=== PATIENT | male | born 1965 | race Caucasian/White ===

== ENCOUNTER 2023-03-22 08:02 | Outpatient (RCR) | payer BC, SELFPAY ==
--- NOTE | 2023-03-22 07:45 | PTOPEVAL1 ---
Assessment and note entered by [employer] Evaluation Information Assessment Status Evaluation Diagnosis left shoulder pain, open subscap repair, biceps tenodesis Onset 03/16/23 Subjective Information Pt. reports he underwent left shoulder surgery on 03/16/23. He reports that he currently has no pain. he states that he has not done anything with the left arm and has been in a sling. He is right hand dominant. 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 He states that he is having no complication with sleep. 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 Reported Pain Level Pain Score 5: Self Report Assessment PT Clinical Summary Pt. is a 58 year old male who enters the clinic 6 days post left subscap repair and biceps tenodesis . He presents with impaired strength, impaired ROM, and pain. continued skilled PT is indicated in order to improve these areas to allow the pt. to achieve his goal of regaining normal left u.e. use. Plan of Care Interventions Electrical Stimulation,Hot Pack/Cold Pack,Manual Therapy,Neuro Re-education,Patient/Caregiver Educati,Therapeutic Activities,Therapeutic Exercise,Self-Care/Home Management PT Services Indicated Yes Treatment Frequency and 2x/week x 12 visits Duration These treatments will address the objective and functional deficits as defined above. The patient will be advanced safely and appropriately in order for the patient to progress towards his/her prior level of function. Additional exercises will be introduced and as well as a comprehensive home exercise program upon discharge, if needed, ?to ensure carryover of functional gains achieved in the clinic. This treatment plan has been reviewed and agreement upon by the patient.
--- NOTE | 2023-04-23 07:53 | PTOPPROG ---
Assessment and note entered by [employer], PT Evaluation Information Assessment Status Progress Diagnosis left shoulder pain, open subscap repair, biceps tenodesis Onset 03/16/23 Subjective Information patient reports he feels a bit tight today. he reports he would like to start to wean from the sling. Assessment PT Clinical Summary mr. wilson presents to skilled PT services for his 10th skilled therapy visit today. he displays improved L shoulder passive flexion, but continues to be tight with passive flexion and ER. he is making progress towards goals, but still lacks achievement of all goals except HEP performance. he would benefit from continued skilled PT with progression to phase 2 next week to begin aarom/ arom and light strengthening of the L shoulder. Plan of Care Interventions Electrical Stimulation,Hot Pack/Cold Pack,Manual Therapy,Neuro Re-education,Patient/Caregiver Educati,Therapeutic Activities,Therapeutic Exercise,Self-Care/Home Management PT Services Indicated Yes Treatment Frequency and continue skilled PT 2x weekly for 10 more visits Duration These treatments will address the objective and functional deficits as defined above. The patient will be advanced safely and appropriately in order for the patient to progress towards his/her prior level of function. Additional exercises will be introduced and as well as a comprehensive home exercise program upon discharge, if needed, ?to ensure carryover of functional gains achieved in the clinic. This treatment plan has been reviewed and agreement upon by the patient.
--- NOTE | 2023-06-01 09:09 | PTOPREEVAL ---
Assessment and note entered by Vickie Ortiz DPT Evaluation Information Assessment Status Re-evaluation Diagnosis left shoulder pain, open subscap repair, biceps tenodesis Onset 03/16/23 Subjective Information patient reports he has not been having any pain in the shoulder but does feel like it gets tight . He reports he has been using his L arm throughout the day but has been aware of not lifting anything heavy Reported Pain Level Pain Score 0: Self Report Assessment PT Clinical Summary Mr Morales has been seen for 10 vists since his last re-evaluation. He has made good progress towards strength and ROM goals but continues to lack end range of AROM. He has returned to house hold and work tasks but is unable to lift anything of weight due to restrictions. He would benefit from continued skilled PT to address impairments and return to PLOF. Plan of Care Interventions Electrical Stimulation,Hot Pack/Cold Pack,Manual Therapy,Neuro Re-education,Patient/Caregiver Educati,Therapeutic Activities,Therapeutic Exercise,Self-Care/Home Management PT Services Indicated Yes Treatment Frequency and continue skilled PT 2x weekly for 10 more visits Duration These treatments will address the objective and functional deficits as defined above. The patient will be advanced safely and appropriately in order for the patient to progress towards his/her prior level of function. Additional exercises will be introduced and as well as a comprehensive home exercise program upon discharge, if needed, ?to ensure carryover of functional gains achieved in the clinic. This treatment plan has been reviewed and agreement upon by the patient.
--- NOTE | 2023-07-06 09:13 | OPREHPOC ---
Outpatient Therapy Plan of Care This is a Multidisciplinary Plan of Care that may contain components documented by all disciplines (PT, OT, and ST.)
--- NOTE | 2023-07-06 09:14 | PTOPDC ---
Assessment and note entered by [employer], PT Evaluation Information Assessment Status Re-evaluation Diagnosis left shoulder pain, open subscap repair, biceps tenodesis Onset 03/16/23 Subjective Information Patient reports he visited the doctor since his last visit, and that he is now released to work with no restrictions. He reports he has returned to full work duties without any difficult. He states he has had no pain present in the L shoulder over the past week. Reported Pain Level Pain Score 0: Self Report Assessment PT Clinical Summary Mr. Morales has attended 10 sessions of skilled PT since his last re-evaluation, making good progress towards all goals. He demonstrates improvements in L shoulder strength and ROM this date, allowing for increased ability to perform functional activities in the home. He reports he has been able to return to all work duties with no restrictions or pain present. He currently has 0% functional decline as assessed by the [facility]. Patient to be discharged with independent HEP at this time. Plan of Care PT Services Indicated No
== END 2023-07-06 10:02 | disposition home or self-care (01) ==
LOC: CHSPT 08:02
DX: S46.89 Other injury of other muscles, fascia and tendons at shoulder and upper arm level (principal); M25.512 Pain in left shoulder
CPT/HCPCS: 97014; 97110; 97112; 97140; 97161; G0283